=== PATIENT | female | born 1940 | race Caucasian/White ===

== ENCOUNTER 2017-03-22 13:28 | Inpatient (IN) | END 2017-03-25 22:20 | DRG 871 | DX: A41.9 Sepsis, unspecified organism (principal); G93.40 Encephalopathy, unspecified; F33.2 Major depressive disorder, recurrent severe without psychotic features; N39.0 Urinary tract infection, site not specified; Z91.14 Patient's other noncompliance with medication regimen; I49.9 Cardiac arrhythmia, unspecified; Z95.0 Presence of cardiac pacemaker; Z79.899 Other long term (current) drug therapy; E78.5 Hyperlipidemia, unspecified; F42.9 Obsessive-compulsive disorder, unspecified; E87.6 Hypokalemia; Z88.1 Allergy status to other antibiotic agents; Z88.2 Allergy status to sulfonamides; I51.7 Cardiomegaly; R45.1 Restlessness and agitation ==

== ENCOUNTER 2017-03-25 21:56 | Inpatient (IN) | payer MEDICARE ==
[~2017-03-25] VITALS: Ht 167.6 cm; Wt 59.0 kg
[~2017-03-25 21:56] MED LIST: ACET325T53 PO; ARIP2TAB3 PO; ATIVAN; DOCU250C14 PO; FAMO-132 PO; HYDR-3326 PO; MAGN400O6 PO; MIRT15TA7 PO; MULT1TAB73 PO; NITR100C11 PO; ZOLP5TAB8 PO
--- NOTE | 2017-03-25 22:30 | NUR ---
AT APPROX 2145, ADMITTED 76 YEAR OLD FEMALE TO [facility] ON A 5150 HOLD FOR GD. PER HOLD, PATIENT HAS BEEN DELUSIONAL. PATIENT WAS FIST ADMITTED TO [facility] 2ND FLOOR ON 03/22/17. THEN SE WAS PUT ON HOLD AND TRANSFERRED TO MHU. HER HOLD STARED ON 03/25/17 AT 1347 AND WILL END ON 03/28/17 QT 1347. PATIENT WAS NOTED A/O X 2, CALM AND COOPERATIVE WITH ADMISSION PROCESS. UPON INTERVIEW, SHE STATED THAT SHE "HEARS THE VOICE OF GOD INSIDE HER HEAD TELLING HER THAT SHE NEEDS TO "WARN PEOPLE THAT THE END IS COMING". SKIN ASSESSMENT IS WARM MOIST AND INTACT EXCEPT FOR MILD REDNESS COCCYX AREA AND MILD REDNESS IN BOTH FEET ANTERIOR PROXIMAL ASPECT. PT WILL BE UNDER THE CARE OF DR. BELLO AND DR ARMSTRONG. MEDICATION WERE RECONCILED. WILL CONTINUE TO MONITOR.
[2017-03-25] MEDS ORDERED: ACETAMINOPHEN 325 MG TABLET PO PRN (23:15)
[2017-03-25] MEDS ORDERED: CLONAZEPAM 0.5 MG TABLET PO PRN (23:15)
[2017-03-25] MEDS ORDERED: TEMAZEPAM 7.5 MG CAPSULE PO PRN (23:15)
[2017-03-25] MEDS ORDERED: MAGNESIUM HYDROXIDE 30 ML LIQUID UDC PO PRN (23:15)
[2017-03-26] MEDS ORDERED: HYDROCODONE/APAP 5-325MG TABLET PO PRN (00:15)
[2017-03-26] MEDS ORDERED: MAGNESIUM HYDROXIDE 30 ML LIQUID UDC PO PRN (00:15)
[2017-03-26] MEDS ORDERED: ACETAMINOPHEN 325 MG TABLET PO PRN (00:15)
[2017-03-26 04:21] VITALS: BP 111/73
[2017-03-26 07:30] VITALS: BP 136/75
[2017-03-26] MEDS ORDERED: Z GUARD REMEDY PASTE 57 GM TUBE TOP PRN (07:30)
[2017-03-26] MEDS ORDERED: Medication Not On Formulary EA (Multivitamins (Multivitamin) 1 TAB) PO SCH (09:00)
[2017-03-26] MEDS ORDERED: ARIPIPRAZOLE 2 MG TABLET PO SCH (09:00)
[2017-03-26] MEDS: NITROFURANTOIN/NITROFURAN MAC 100 MG CAPSULE PO SCH ×2 (10:17→16:16)
[2017-03-26] MEDS: FAMOTIDINE 20 MG TABLET PO SCH (10:17)
[2017-03-26] MEDS: MULTIVITAMINS,THERAPEUTIC TABLET PO SCH (10:17)
[2017-03-26] MEDS: ARIPIPRAZOLE 5 MG TABLET PO SCH (10:59)
[2017-03-26] MEDS: ESCITALOPRAM OXALATE 10 MG TABLET PO SCH (10:59)
[2017-03-26 17:07] VITALS: BP 114/76
[2017-03-26] MEDS: DOCUSATE SODIUM 100 MG CAPSULE PO SCH (20:37)
[2017-03-26] MEDS ORDERED: MIRTAZAPINE 15 MG TABLET PO SCH (21:00)
[2017-03-26] MEDS ORDERED: DOCUSATE SODIUM 250 MG CAPSULE PO SCH (21:00)
[2017-03-26] MEDS: ZOLPIDEM 5 MG TABLET PO PRN (21:34)
--- NOTE | 2017-03-27 06:32 | NUR ---
Pt C/O NAUSEA x2 IN THE BEGINNING OF THE SHIFT. Pt GIVEN CRACKERS AND ROHIT BRYAN, AND WAS EFFECTIVE. THIS MORNING Pt C/O WORSENING NAUSEA, FELT WASHING MACHINE TENDER MIKKI NOTIFIED AND ORDER WAS GIVEN FOR ZOFRAN 4mg Q 6 PRN. WILL BE ADMINISTERED.
[2017-03-27] MEDS: ONDANSETRON HCL 4 MG TABLET PO PRN ×3 (06:39→22:37)
[2017-03-27] MEDS ORDERED: ONDANSETRON HCL 4 MG TABLET ONE (06:54)
[2017-03-27 07:56] VITALS: BP 113/66
[2017-03-27] MEDS: NITROFURANTOIN/NITROFURAN MAC 100 MG CAPSULE PO SCH ×2 (08:47→16:13)
[2017-03-27] MEDS: ARIPIPRAZOLE 5 MG TABLET PO SCH (08:47)
[2017-03-27] MEDS: FAMOTIDINE 20 MG TABLET PO SCH (08:47)
[2017-03-27] MEDS: MULTIVITAMINS,THERAPEUTIC TABLET PO SCH (08:47)
[2017-03-27] MEDS: ESCITALOPRAM OXALATE 10 MG TABLET PO SCH (08:47)
[2017-03-27] MEDS: MAG HYDROX/AL HYDROX/SIMETH 30 ML LIQUID UDC PO PRN (13:44)
[2017-03-27 15:57] VITALS: BP 98/67
[2017-03-27] MEDS: DOCUSATE SODIUM 100 MG CAPSULE PO SCH (20:16)
[2017-03-27 21:16] VITALS: BP 132/75
[2017-03-27] MEDS: ZOLPIDEM 5 MG TABLET PO PRN (21:18)
--- NOTE | 2017-03-27 22:37 | NUR ---
UNABLE TO SCAB ZOFRAN BARCODE, SAID WRONG BARCODE FORMAT
[2017-03-28 07:30] VITALS: BP 108/66
[2017-03-28] MEDS: ESCITALOPRAM OXALATE 10 MG TABLET PO SCH (08:57)
[2017-03-28] MEDS: MULTIVITAMINS,THERAPEUTIC TABLET PO SCH (08:57)
[2017-03-28] MEDS: NITROFURANTOIN/NITROFURAN MAC 100 MG CAPSULE PO SCH ×2 (08:57→17:06)
[2017-03-28] MEDS: ARIPIPRAZOLE 5 MG TABLET PO SCH (08:57)
[2017-03-28] MEDS: FAMOTIDINE 20 MG TABLET PO SCH (08:57)
--- NOTE | 2017-03-28 12:24 | NUR ---
Initial DC Plan: Patient currently lives at home with her daughter Sabrina [[address] [place] [address]]. SW attempted to contact patient's daughter [[phone]] to discuss discharge plans, and left a voicemail. SW will follow up with MD, patient, and patient's daughter to discuss most appropriate discharge plans. SW will form a safe and proper discharge.
--- NOTE | 2017-03-28 15:41 | NUR ---
Firearms Reporting: MODESTA submitted Mental Health Report to [employer] on 03/28.
[2017-03-28 17:15] VITALS: BP 115/68
[2017-03-28 20:10] VITALS: BP 111/65
[2017-03-28] MEDS: DOCUSATE SODIUM 100 MG CAPSULE PO SCH (21:13)
[2017-03-28] MEDS: ZOLPIDEM 5 MG TABLET PO PRN (21:51)
[2017-03-29 08:00] VITALS: BP 125/72
[2017-03-29] MEDS: ARIPIPRAZOLE 5 MG TABLET PO SCH (09:00)
[2017-03-29] MEDS: MULTIVITAMINS,THERAPEUTIC TABLET PO SCH (09:00)
[2017-03-29] MEDS: NITROFURANTOIN/NITROFURAN MAC 100 MG CAPSULE PO SCH ×2 (09:00→17:47)
[2017-03-29] MEDS: FAMOTIDINE 20 MG TABLET PO SCH (09:00)
[2017-03-29] MEDS: ESCITALOPRAM OXALATE 10 MG TABLET PO SCH (09:01)
[2017-03-29] MEDS: MAG HYDROX/AL HYDROX/SIMETH 30 ML LIQUID UDC PO PRN (12:36)
[2017-03-29 16:00] VITALS: BP 108/54
[2017-03-29 20:03] VITALS: BP 114/74
[2017-03-29] MEDS: DOCUSATE SODIUM 100 MG CAPSULE PO SCH (20:47)
[2017-03-29] MEDS: ZOLPIDEM 5 MG TABLET PO PRN (21:34)
--- NOTE | 2017-03-29 21:35 | NUR ---
GPS: PATIENT C/O INSOMNIA. AMBIEN 5 MG PO GIVEN.
--- NOTE | 2017-03-29 22:35 | NUR ---
GPS: PATIENT SLEEPING EYE CLOSE. PRN EFFECTIVE.
--- NOTE | 2017-03-30 06:42 | NUR ---
GPS: REMAIN CALM AND COOPERATIVE. NO BEHAVIOR PROBLEM NOTED. SHOWERED THIS MORNING. SLEPT 9 HRS THROUGH THE NIGHT AFTER AMBIEN 5 MG PO GIVEN. REMAIN PLESANT THROUGH THE NOGHT.
[2017-03-30 07:30] VITALS: BP 126/74
[2017-03-30] MEDS: ESCITALOPRAM OXALATE 10 MG TABLET PO SCH (08:41)
[2017-03-30] MEDS: ARIPIPRAZOLE 5 MG TABLET PO SCH (08:41)
[2017-03-30] MEDS: FAMOTIDINE 20 MG TABLET PO SCH (08:41)
[2017-03-30] MEDS: MULTIVITAMINS,THERAPEUTIC TABLET PO SCH (08:41)
[2017-03-30] MEDS: NITROFURANTOIN/NITROFURAN MAC 100 MG CAPSULE PO SCH ×2 (08:41→17:29)
[2017-03-30] MEDS: DOCUSATE SODIUM 100 MG CAPSULE PO SCH (20:08)
[2017-03-30 20:16] VITALS: BP 111/59
[2017-03-30] MEDS: ZOLPIDEM 5 MG TABLET PO PRN (21:27)
--- NOTE | 2017-03-30 21:27 | NUR ---
GPS: PATIENT C/O INSOMNIA. AMBIEN 5 MG PO GIVEN.
--- NOTE | 2017-03-30 22:28 | NUR ---
GPS: PATIENT SLEEPING EYE CLOSE. PRN EFFECTIVE FOR SLEEP.
--- NOTE | 2017-03-31 06:42 | NUR ---
GPS: REMAIN CALM AND COOPERATIVE WITH MEDICATION AND CARE. NO BEHAVIOR PROBLEM NOTED. SLEPT 6 HRS THROUGH THE NIGHT AFTER SLEEPING MEDICATION GIVEN. RESTING IN BED COMFORTABLY.
[2017-03-31 07:30] VITALS: BP 116/62
[2017-03-31] MEDS: FAMOTIDINE 20 MG TABLET PO SCH (08:24)
[2017-03-31] MEDS: ARIPIPRAZOLE 5 MG TABLET PO SCH (08:24)
[2017-03-31] MEDS: ESCITALOPRAM OXALATE 10 MG TABLET PO SCH (08:24)
[2017-03-31] MEDS: MULTIVITAMINS,THERAPEUTIC TABLET PO SCH (08:24)
[2017-03-31] MEDS: NITROFURANTOIN/NITROFURAN MAC 100 MG CAPSULE PO SCH ×2 (08:24→20:38)
[2017-03-31 15:14] VITALS: BP 113/65
--- NOTE | 2017-03-31 16:44 | NUR ---
SS: SW called pt's daughter to discuss discharge plan. Pt's daughter Sabrina [[phone]] reported to SW that her mother was kicked out of her board & care and was unable to recall the name. However, she was able to recall that they threw out her mother's clothing. Daughter said that her mother came to her home for one week and she is unable to keep her there due to having a roomate and feels that her mother needs supervision. pt's daughter said that she believes her mother should be in a SNF not a Board & Care. Pt's daughter said that [facility] had told her that her mother should be in a board & care. SW called the SNF that the pt previously resided in before the Board & Care to see if they have any availability. The nurse at [facility] [place] reported that there was no availability.
[2017-03-31] MEDS: DOCUSATE SODIUM 100 MG CAPSULE PO SCH (20:39)
--- NOTE | 2017-03-31 21:00 | NUR ---
PT IS VISIBLE ON THE UNIT, PLEASANT, ABLE TO MAKE NEEDS KNOWN, MED COMPLIANT, REQUESTED FOR SLEEPING MED, MED EFFECTIVE, MONITOR CLOSELY.
[2017-03-31] MEDS: ZOLPIDEM 5 MG TABLET PO PRN (21:29)
[2017-04-01 07:30] VITALS: BP 108/64
[2017-04-01] MEDS: ARIPIPRAZOLE 5 MG TABLET PO SCH (09:53)
[2017-04-01] MEDS: FAMOTIDINE 20 MG TABLET PO SCH (09:54)
[2017-04-01] MEDS: ESCITALOPRAM OXALATE 10 MG TABLET PO SCH (09:54)
[2017-04-01] MEDS: MULTIVITAMINS,THERAPEUTIC TABLET PO SCH (09:54)
[2017-04-01] MEDS: NITROFURANTOIN/NITROFURAN MAC 100 MG CAPSULE PO SCH ×2 (09:54→17:59)
[2017-04-01 15:20] VITALS: BP 102/49
[2017-04-01 20:48] VITALS: BP 133/65
[2017-04-01] MEDS: DOCUSATE SODIUM 100 MG CAPSULE PO SCH (20:57)
[2017-04-01] MEDS: ZOLPIDEM 5 MG TABLET PO PRN (22:11)
--- NOTE | 2017-04-01 22:30 | NUR ---
RECEIVED PATIENT IN THE DAY ROOM WATCHING TV. SHE WAS NOTED A/O X 2. CALM AND PLEASANT IN NO DISTRESS. SHE IS ABLE TO AMBULATE WITH STEADY GAIT AND ABLE TO MAKE HER NEEDS KNOW. SHE IS COMPLIANT WITH MEDICATION REGIMENT AND PLAN OF CARE AT THIS TIME. PT REQUESTED AMBIEN 5MG PO PRN FOR INSOMNIA. WILL CONTINUE TO MONITOR.
[2017-04-02 07:30] VITALS: BP 106/60
[2017-04-02] MEDS: NITROFURANTOIN/NITROFURAN MAC 100 MG CAPSULE PO SCH ×2 (08:23→16:48)
[2017-04-02] MEDS: FAMOTIDINE 20 MG TABLET PO SCH (08:23)
[2017-04-02] MEDS: ARIPIPRAZOLE 5 MG TABLET PO SCH (08:23)
[2017-04-02] MEDS: ESCITALOPRAM OXALATE 10 MG TABLET PO SCH (08:23)
[2017-04-02] MEDS: MULTIVITAMINS,THERAPEUTIC TABLET PO SCH (08:23)
[2017-04-02 15:21] VITALS: BP 100/68
[2017-04-02] MEDS: DOCUSATE SODIUM 100 MG CAPSULE PO SCH (20:10)
[2017-04-02 20:14] VITALS: BP 108/71
[2017-04-02] MEDS: ZOLPIDEM 5 MG TABLET PO PRN (22:12)
--- NOTE | 2017-04-02 22:15 | NUR ---
RECEIVED PATIENT IN THE DAY ROOM. SHE IS A/O X 2 ABLE TO MAKE HER NEEDS KNOW AND ABLE TO AMBULATE WITH STEADY GAIT. ABLE TO INTERACT WITH STAFF. NO BEHAVIORAL PROBLEMS NOTED AT THIS TIME. COMPLIANT WITH MEDICATION REGIMENT DIET AND PLAN OF CARE. PATIENT NOTED CALM PLEASANT AND COOPERATIVE. SHE REQUESTED A "SLEEPING PILL". AMBIEN 5MG PO PRN WAS GIVEN AT 2212 FOR INSOMNIA PER PATIENT REQUEST AND NURSE ASSESSMENT. WILL CONTINUE TO MONITOR.
[2017-04-03 07:30] VITALS: BP 114/68
[2017-04-03] MEDS: ARIPIPRAZOLE 5 MG TABLET PO SCH (08:38)
[2017-04-03] MEDS: MULTIVITAMINS,THERAPEUTIC TABLET PO SCH (08:38)
[2017-04-03] MEDS: FAMOTIDINE 20 MG TABLET PO SCH (08:38)
[2017-04-03] MEDS: ESCITALOPRAM OXALATE 10 MG TABLET PO SCH (08:38)
[2017-04-03 16:55] VITALS: BP 104/62
[2017-04-03] MEDS: DOCUSATE SODIUM 100 MG CAPSULE PO SCH (20:04)
[2017-04-03 20:57] VITALS: BP 134/77
[2017-04-03] MEDS: ZOLPIDEM 5 MG TABLET PO PRN (22:00)
--- NOTE | 2017-04-03 22:30 | NUR ---
RECEIVED PATIENT IN THE DAY ROOM TALKING TO HER DAUGHTER. SHE IS CALM. PLEASANT A/O X 2 ABLE TO MAKE HER NEEDS KNOW AND ABLE TO AMBULATE WITH STEADY GAIT. NO BEHAVIORAL PROBLEMS NOTED AT THIS TIME. NO AH OR VH WERE NOTED OR REPORTED AT THIS TIME. SHE IS COMPLIANT WITH MEDICATION REGIMENT DIET AND PLAN OF CARE. SHE REQUESTED A "SLEEPING PILL". AMBIEN 5MG PO PRN WAS GIVEN AT 2212 FOR INSOMNIA PER PATIENT REQUEST AND NURSE ASSESSMENT. WILL CONTINUE TO MONITOR.
[2017-04-04 07:30] VITALS: BP 113/57
[2017-04-04] MEDS: MULTIVITAMINS,THERAPEUTIC TABLET PO SCH (08:15)
[2017-04-04] MEDS: ARIPIPRAZOLE 5 MG TABLET PO SCH (08:15)
[2017-04-04] MEDS: ESCITALOPRAM OXALATE 10 MG TABLET PO SCH (08:15)
[2017-04-04] MEDS: FAMOTIDINE 20 MG TABLET PO SCH (08:15)
--- NOTE | 2017-04-04 13:01 | NUR ---
Discharge Planning Note: SW attempted to call patient's daughter Sabrina [[phone]] to discuss discharging planning. MODESTA left a voicemail for Sabrina on 04/03 and 04/04. MODESTA will attempt to call patient's daughter again this afternoon.
[2017-04-04 16:36] VITALS: BP 114/63
[2017-04-04 20:09] VITALS: BP 109/62
[2017-04-04] MEDS: DOCUSATE SODIUM 100 MG CAPSULE PO SCH (20:22)
[2017-04-04] MEDS: ZOLPIDEM 5 MG TABLET PO PRN (22:21)
--- NOTE | 2017-04-05 02:30 | NUR ---
SMALL OPEN WOUND NOTED ON Pt's SACRAL COCCYX AREA. Z GUARD APPLIED AND WOUND CARE CONSULT ORDERED. Pt REPOSITIONED AND EDUCATED TO AMBULATE AND REPOSITION MORE FREQUENTLY, Pt VERBALIZED UNDERSTANDING. PHOTO TAKEN AND PLACED IN CHART.
[2017-04-05 08:00] VITALS: BP 102/51
[2017-04-05] MEDS: FAMOTIDINE 20 MG TABLET PO SCH (09:00)
[2017-04-05] MEDS: MULTIVITAMINS,THERAPEUTIC TABLET PO SCH (09:00)
[2017-04-05] MEDS: ARIPIPRAZOLE 5 MG TABLET PO SCH (09:00)
[2017-04-05] MEDS: ESCITALOPRAM OXALATE 10 MG TABLET PO SCH (09:00)
[2017-04-05 10:18] LABS: ALANINE AMINOTRANSFERASE 15 U/L (14-59); ALKALINE PHOSPHATASE 77 U/L (50-136); ASPARTATE AMINOTRANSFERASE 17 U/L (15-37); BASOPHILS % (AUTO) 0.7 % (0.0-2.0); BILIRUBIN,TOTAL 0.4 mg/dL (0.2-1.0); CARBON DIOXIDE 30 mmol/L (21-32); CHLORIDE 100 mmol/L (98-107); CREATININE 0.9 mg/dL (0.6-1.3); EOSINOPHILS % (AUTO) 0.8 % (0.0-7.0); GLUCOSE 81 mg/dL (74-106); HEMATOCRIT 36.3 % (31.2-41.9); HEMOGLOBIN 12.4 g/dL (10.9-14.3); MAGNESIUM 1.9 mg/dL (1.8-2.4); MEAN CORPUSCULAR HEMOGLOBIN 31.9 uug (24.7-32.8); MEAN CORPUSCULAR HGB CONC 34 g/dL (32.3-35.6); MEAN CORPUSCULAR VOLUME 93.5 fL (75.5-95.3); MONOCYTES % (AUTO) 7.9 % (0.0-11.0); NEUTROPHILS % (AUTO) 70.6 % (38.5-71.5); PHOSPHOROUS 3.7 mg/dL (2.5-4.9); PLATELET COUNT (AUTO) 220 K/uL (179-408); POTASSIUM 3.9 mmol/L (3.5-5.1); RED BLOOD CELL COUNT(AUTO) 3.88 MIL/uL (3.63-4.92); TOTAL PROTEIN, SERUM 7.2 g/dL (6.4-8.2); UREA NITROGEN, BLOOD 13 mg/dL (7-18)
[2017-04-05 10:19] LABS: MONOCYTES # (AUTO) 0.4 K/uL (2.0-10.0); NEUTROPHILS # (AUTO) 3.5 K/uL (1.8-8.9)
--- NOTE | 2017-04-05 10:26 | NUR ---
WOUND CARE CONSULT: PT PRESENTS AMBULATORY AND CONTINENT. CURRENT SERGIO SCORE IS 20. PT NOTED TO HAVE GLUTEAL CREASE EXCORIATED AREA. PT NOTED TO HAVE LOOSE SKIN TO BUTTOCKS. RECOMMENDATIONS MADE FOR SKIN PROTECTION AND DISCUSSED WITH NURSING STAFF. WILL SEE PRN. GARCIA IN AGREEMENT WITH PLAN OF CARE. Addendum: 04/05/17 at 1030 by JOANN BATISTA RN Amended: Links added.
--- NOTE | 2017-04-05 10:36 | NUR ---
DC Note: Patient will be discharged to [facility] [[address] [place] [address]; ] via ambulance at 2pm. MODESTA spoke with Maggie at [facility] to confirm discharge plans. Patient is aware and agreeable to discharge plans. SW left a voicemail with details of discharge plan for patient's daughter Sabrina [[phone]]. Patient will follow up with Dr. Lovell (Auction Block Clerk) and Dr. Gillespie (Psychiatrist).
[2017-04-05 10:56] LABS: *BILIRUBIN,URIN NEGATIVE (NEGATIVE); *BLOOD, URINE NEGATIVE (NEGATIVE); *CLARITY,URINE CLEAR (CLEAR); *COLOR,URINE YELLOW (YELLOW); *KETONES,URINE NEGATIVE (NEGATIVE); *PROTEIN,URINE NEGATIVE (NEGATIVE); *UROBILINOGEN,URINE 0.2 E.U./dl (NORMAL); LEUKOCYTE ESTERASE ,URINE NEGATIVE (NEGATIVE); NITRITE, URINE NEGATIVE (NEGATIVE); UGLUCOSE NEGATIVE (NEGATIVE)
[2017-04-05 11:17] LABS: BACTERIA,URINE NONE SEEN /HPF (NONE SEEN); MUCUS,URINE FEW /LPF (0-FEW); RBC,URINE 0-3 /HPF (0-3); SQUAMOUS EPITHELIAL CELL,UR FEW /HPF (NONE SEEN)
[2017-04-05 12:37] LABS: THYROID STIMULATING HORMONE 1.119 mIU/mL (0.358-3.740)
--- NOTE | 2017-04-05 15:00 | NUR ---
GPS: Nursing Notes: Discharge Notes: Patient is awake and responding to her name, cooperative with nursing care, compliant with her medications, denies any SI/HI, denies any AH/VH, denies any pain or discomfort, denies any SOB, discharge to [facility] at [address] [place] [id number] , report given to Corin OROPEZA, transported via ambulance to the facility. Patient is aware and agreeable to discharge plans. SW left a voicemail with details of discharge plan for patient's daughter Sabrina [[phone]]. Patient will follow up with Dr. Lovell ([place] Headgate Operator) and Dr. Gillespie (Psychiatrist).
== END 2017-04-05 15:00 | DRG 885 ==
LOC: GPS 21:56
PROVIDERS: ADMIT Psychiatry & Neurology Psychiatry; ATTEND Internal Medicine
DX: F33.3 Major depressive disorder, recurrent, severe with psychotic symptoms (principal); G93.40 Encephalopathy, unspecified; N39.0 Urinary tract infection, site not specified; I11.9 Hypertensive heart disease without heart failure; E78.5 Hyperlipidemia, unspecified; F42.9 Obsessive-compulsive disorder, unspecified; E87.6 Hypokalemia; G47.00 Insomnia, unspecified; Z95.0 Presence of cardiac pacemaker; I49.9 Cardiac arrhythmia, unspecified; F41.9 Anxiety disorder, unspecified
CPT/HCPCS: 36415; 83735; 84100; 84443; 85025; 87086; 93005; Q0162